=== PATIENT | female | born 1955 | race Caucasian/White ===

== ENCOUNTER 2020-09-30 06:58 | Day surgery (SDC) | payer OTHER, BC, SELFPAY ==
[2020-09-25 16:13] LABS: BASOPHILS # (AUTO) 0.1 K/uL (0.0-0.2); BASOPHILS % (AUTO) 1.2 % (0.0-2.0); EOSINOPHILS # (AUTO) 0.3 K/uL (0.0-0.4); HEMATOCRIT 49.6 % (36-48); HEMOGLOBIN 17.2 g/dL (12.0-16.0); LYMPHOCYTES # (AUTO) 2.2 K/uL (1.0-5.5); LYMPHOCYTES % (AUTO) 21.4 % (20.5-51.5); MEAN CORPUSCULAR HEMOGLOBIN 30 pg (27-31); MEAN CORPUSCULAR HGB CONC 35 % (32-36); MEAN CORPUSCULAR VOLUME 87 fL (79.0-98.0); MONOCYTES # (AUTO) 0.7 K/uL (0.0-1.0); MONOCYTES % (AUTO) 6.4 % (1.7-9.3); PLATELET COUNT (AUTO) 324 K/uL (130-430); RED BLOOD CELL COUNT(AUTO) 5.71 MIL/uL (4.2-6.2); RED CELL DISTRIBUTION WIDTH 15.5 % (9.0-15.0); WHITE BLOOD COUNT (AUTO) 10.3 K/uL (4.8-10.8)
[2020-09-25 16:32] LABS: CALCIUM 8.9 mg/dL (8.4-11.0)
[2020-09-25 16:36] LABS: PROTHROMBIN TIME 10.4 SECS (9.5-12.5)
[2020-09-25 18:12] LABS: BILIRUBIN,URINE NEGATIVE (NEGATIVE); BLOOD, URINE 1+ (NEGATIVE); COLOR,URINE YELLOW (YELLOW); GLUCOSE,URINE NEGATIVE (NEGATIVE); KETONES,URINE NEGATIVE (NEGATIVE); LEUKOCYTE ESTERASE ,URINE 2+ (NEGATIVE); NITRITE, URINE NEGATIVE (NEGATIVE); PROTEIN URINE NEGATIVE (NEGATIVE); UROBILINOGEN,URINE 0.2 (0.2-1.0)
[2020-09-25 18:26] LABS: CLARITY/URINE HAZY (CLEAR)
[2020-09-25 19:34] LABS: BACTERIA,URINE MODERATE /HPF (None Seen); RBC,URINE 0-3 /HPF (0-3)
[2020-09-25 19:38] LABS: MUCUS,URINE None Seen /LPF (None Seen)
[~2020-09-30] VITALS: Ht 157.5 cm; Wt 78.9 kg
[2020-09-30] MEDS ORDERED: DEXAMETHASONE SOD PHOSPHATE 4 MG/ML VIAL IVP ONE (09:10)
[2020-09-30] MEDS ORDERED: PROPOFOL 200MG/ 20ML VIAL (DIPRIVAN) IV ONE (09:10)
[2020-09-30] MEDS ORDERED: fentaNYL CITRATE 250 MCG/5 ML AMP IV ONE (09:10)
[2020-09-30] MEDS ORDERED: ONDANSETRON HCL 4 MG/2 ML VIAL IVP ONE (09:10)
[2020-09-30] MEDS ORDERED: LIDOCAINE 1% 10 MG/ML, 20 ML MDV INJ ONE (09:10)
[2020-09-30] MEDS ORDERED: SEVOFLURANE 15 MIN GAS INH ONE (09:10)
[2020-09-30] MEDS ORDERED: LR 1,000 ML IV.SOLN IV ONE (09:10)
[2020-09-30] MEDS ORDERED: NS IRRIG SOLN 5000 ML IR ONE (09:10)
[2020-09-30] MEDS ORDERED: KETOROLAC TROMETHAMINE 30 MG VIAL IVP ONE (09:10)
[2020-09-30] MEDS ORDERED: METOCLOPRAMIDE HCL 10 MG/2 ML VIAL IVP PRN (09:30)
[2020-09-30] MEDS ORDERED: fentaNYL CITRATE/PF 100 MCG/2 ML AMP IVP PRN (09:30)
[2020-09-30] MEDS ORDERED: KETOROLAC TROMETHAMINE 30 MG VIAL IVP PRN (09:30)
[2020-09-30] MEDS ORDERED: IBUPROFEN 600 MG TABLET PO ONE (09:30)
[2020-09-30 11:15] VITALS: BP_SYST 107
[2020-09-30] MEDS ORDERED: ONDANSETRON HCL 4 MG/2 ML VIAL IM PRN (13:00)
[2020-09-30] MEDS ORDERED: IBUPROFEN 800 MG TABLET PO PRN (13:00)
== END 2020-09-30 12:45 | disposition home or self-care (01) ==
LOC: SDS 06:58 → SMU 06:58 → SDS 12:45
PROVIDERS: ATTEND Obstetrics & Gynecology
DX: N95.0 Postmenopausal bleeding (principal); N84.0 Polyp of corpus uteri; I10 Essential (primary) hypertension; E11.9 Type 2 diabetes mellitus without complications; G47.33 Obstructive sleep apnea (adult) (pediatric); K21.9 Gastro-esophageal reflux disease without esophagitis; Z79.899 Other long term (current) drug therapy; Z88.5 Allergy status to narcotic agent; Z88.8 Allergy status to other drugs, medicaments and biological substances; Z79.82 Long term (current) use of aspirin; Z20.828 Contact with and (suspected) exposure to other viral communicable diseases
CPT/HCPCS: 36415; 58558; 80048; 81000; 85025; 85610; 85730; 87086; 88305; C1819; J1100; J1885; J2001; J2405; J2704; J3010; J7120; U0003